=== PATIENT | female | born 1955 | race Asian ===

== ENCOUNTER 2023-05-14 20:44 | Emergency (ER) | payer BC, OTHER ==
[~2023-05-14] VITALS: Ht 154.9 cm; Wt 49.9 kg
[2023-05-14 21:42] VITALS: BP_SYST 146; PULSE 69; RESP 16; TEMP 97.5; O2SAT 96
[2023-05-14 21:55] VITALS: BP_SYST 146; PULSE 69; RESP 16; TEMP 97.5; O2SAT 96
== END 2023-05-14 21:55 | disposition home or self-care (01) ==
LOC: SED 20:44
DX: H43.391 Other vitreous opacities, right eye (principal); Z88.1 Allergy status to other antibiotic agents; Z79.899 Other long term (current) drug therapy
CPT/HCPCS: 99281